=== PATIENT | female | born 1955 | race Caucasian/White ===

== ENCOUNTER 2016-08-18 08:24 | Emergency (ER) | payer OTHER ==
[~2016-08-18] VITALS: Ht 177.8 cm; Wt 101.0 kg
[~2016-08-18 08:24] MED LIST: ALPR1TAB SL; ALPR1TAB10 PO; AMLO10TA2 PO; DEXL60CA PO; DULO60CA55 PO; DULO60CA7 PO; ESTR0.5T PO; OMEP-110 PO; ONDA4TAB13 SL; PRAM1TAB PO; ROSU10TA PO; SUCR1ORA2 PO; TRAM1TAB6 PO; TRAM50TA2 PO
[2016-08-18] MEDS ORDERED: SODIUM CHLORIDE FLUSH 10ML SYR IVF ONE (09:30)
[2016-08-18] MEDS ORDERED: SODIUM CHLORIDE 0.9% 1,000ML IVBOLUS ONE ×2 (09:30→11:00)
[2016-08-18 09:54] LABS: ASPARTATE AMINO TRANSFERASE 21 U/L (15-37); BLOOD UREA NITROGEN 21 mg/dL (7-18)
[2016-08-18 13:49] VITALS: BP 128/87
== END 2016-08-18 13:52 | disposition home or self-care (01) ==
LOC: ED 09:56
DX: R19.7 Diarrhea, unspecified (principal); R10.9 Unspecified abdominal pain; R11.0 Nausea; I10 Essential (primary) hypertension; Z90.710 Acquired absence of both cervix and uterus
CPT/HCPCS: 36415; 80053; 81001; 83690; 85025; 87086; 87324; 89055; 96360; 96361; 99285; J7030

== ENCOUNTER 2017-05-30 09:23 | Emergency (ER) | payer OTHER ==
[~2017-05-30] VITALS: Ht 180.3 cm; Wt 103.0 kg
[~2017-05-30 09:23] MED LIST changes: -DEXL60CA PO; +DEXL60CA2 PO; -SUCR1ORA2 PO; +SUCR1ORA5 PO
[2017-05-30 09:37] VITALS: BP 128/82
[2017-05-30] MEDS ORDERED: AMOX1TAB12 PO (10:33)
== END 2017-05-30 11:01 | disposition home or self-care (01) ==
LOC: ED 11:00
DX: J98.01 Acute bronchospasm (principal); J06.9 Acute upper respiratory infection, unspecified; I10 Essential (primary) hypertension
CPT/HCPCS: 71046; 93005; 99284

== ENCOUNTER → 2018-03-30 | Outpatient (CLI) | payer OTHER ==
[~2018-03-30] MED LIST changes: -AMLO10TA2 PO; +AMLO10TA8 PO; +AMOX1TAB12 PO
== END | disposition home or self-care (01) ==
LOC: CFH 09:11
PROVIDERS: ATTEND Family Medicine
DX: Z12.2 Encounter for screening for malignant neoplasm of respiratory organs (principal); M47.892 Other spondylosis, cervical region; R91.1 Solitary pulmonary nodule; K76.0 Fatty (change of) liver, not elsewhere classified; F17.210 Nicotine dependence, cigarettes, uncomplicated
CPT/HCPCS: G0297

== ENCOUNTER → 2018-04-18 | Outpatient (CLI) | payer OTHER | END | disposition home or self-care (01) | LOC: CFH 12:53 | PROVIDERS: ATTEND Internal Medicine Cardiovascular Disease | DX: I25.89 Other forms of chronic ischemic heart disease (principal); I47.1 Supraventricular tachycardia; E78.5 Hyperlipidemia, unspecified; I10 Essential (primary) hypertension; R07.89 Other chest pain | CPT/HCPCS: 78452; 93017; A9502 ==